=== PATIENT | female | born 1940 | race Caucasian/White ===

== ENCOUNTER 2019-07-10 17:00 | Emergency (ER) | payer MEDICARE, BC ==
--- NOTE | 2019-07-10 18:19 | RAD ---
Exam: XR Knee Lt 4 View STANDARD HISTORY: Left knee pain COMPARISON: None FINDINGS: The lateral view is rotated which limits evaluation for joint effusion. No acute fracture, dislocation, or other acute osseous abnormality is identified. Minimal osteophytes are seen involving the lateral joint compartment. IMPRESSION: No acute osseous abnormality is identified.
== END 2019-07-10 18:55 | disposition home or self-care (01) ==
LOC: BURERS 17:00
DX: S80.02XA Contusion of left knee, initial encounter (principal); I10 Essential (primary) hypertension; E78.5 Hyperlipidemia, unspecified; K21.9 Gastro-esophageal reflux disease without esophagitis; Z79.899 Other long term (current) drug therapy; W19.XXXA Unspecified fall, initial encounter